=== PATIENT | female | born 1985 | race African-American/Black ===

== ENCOUNTER 2017-08-14 19:51 | Emergency (ER) | payer OTHER ==
[~2017-08-14] VITALS: Ht 162.6 cm; Wt 171.2 kg
[2017-08-14 21:25] LABS: INFLUENZA A NONE DETECTED (NONE DETECT); INFLUENZA B NONE DETECTED (NONE DETECT)
[2017-08-14] MEDS ORDERED: KEFLEX500 M1 PO (21:37)
[2017-08-14 22:08] VITALS: BP 145/88
== END 2017-08-14 22:06 | disposition home or self-care (01) | DRG 153 ==
LOC: ED 19:51
PROVIDERS: Emergency Medicine
DX: J02.0 Streptococcal pharyngitis (principal); J02.9 Acute pharyngitis, unspecified; R05 Cough